=== PATIENT | female | born 1970 | race Caucasian/White ===

== ENCOUNTER 2019-10-02 08:19 | Outpatient (CLI) | payer OTHER, SELFPAY ==
[2019-10-06 10:59] LABS: Reference Lab Test Result Negative
== END 2019-10-02 08:20 | disposition home or self-care (01) ==
DX: Z00.00 Encounter for general adult medical examination without abnormal findings (principal); Z03.89 Encounter for observation for other suspected diseases and conditions ruled out
CPT/HCPCS: 36415; 86769